=== PATIENT | male | born 1955 | race Caucasian/White ===

== ENCOUNTER 2018-08-23 11:19 | Inpatient (IN) | payer OTHER ==
[2018-08-23] MEDS: HYDROmorphONE 0.5 MG/0.5 ML SYG IV ×2 (11:44→13:36)
[2018-08-23] MEDS: CEFAZOLIN 1 GM/50 ML (PMX) 50 ML IVPB (12:00)
[2018-08-23 12:02] LABS: ADD MAN DIFF? NO
[2018-08-23 12:11] LABS: BASOPHIL # 0.1 10^3/ul (0.0-0.1); BASOPHILS % 0.5 % (0.0-2.0); EOSINOPHILS # 0.1 10^3/ul (0.0-0.5); EOSINOPHILS % 1.5 % (0.0-7.0); HEMATOCRIT 38.3 % (42.0-52.0); HEMOGLOBIN 13.2 g/dl (14.0-18.0); LYMPHOCYTES # 3.1 10^3/ul (0.8-2.9); LYMPHOCYTES % 32.6 % (15.0-51.0); MEAN CORPUSCULAR HGB CONC 34.5 g/dl (32.0-37.0); MEAN PLATELET VOLUME 10.1 fl (7.4-10.4); MONOCYTE # 0.8 10^3/ul (0.3-0.9); MONOCYTES % 8.1 % (0.0-11.0); NEUTROPHIL # 5.5 10^3/ul (1.6-7.5); PLATELET COUNT 294 10^3/UL (140-415)
[2018-08-23 12:11] LABS: WHITE BLOOD COUNT 9.6 10^3/ul (4.8-10.8)
[2018-08-23 12:24] LABS: ANION GAP 10 (5-13); BLOOD UREA NITROGEN 26 mg/dl (7-20); CALCIUM 9.3 mg/dl (8.4-10.2); CARBON DIOXIDE 24 mmol/L (21-31); CHLORIDE 103 mmol/L (97-110); CREATININE 1.04 mg/dl (0.61-1.24); Estimated GFR > 60 mL/min (>60); GLUCOSE 192 mg/dl (70-220); POTASSIUM 4.6 mmol/L (3.5-5.1); SODIUM 137 mmol/L (135-144)
[2018-08-23 12:28] LABS: INR 1.06; PROTIME 13.9 Sec (11.9-14.9); PT RATIO 1.1
[2018-08-23 12:29] LABS: PARTIAL THROMBOPLASTIN TIME 26.4 Sec (23.0-35.0)
[2018-08-23] MEDS ORDERED: PROPOFOL 20 ML (13:33)
[2018-08-23] MEDS ORDERED: DOCUSATE SODIUM 100 MG CAP PO (14:00)
[2018-08-23] MEDS ORDERED: NACL 0.9% 3 ML SYG IV (14:00)
[2018-08-23] MEDS ORDERED: ONDANSETRON 4 MG INJ IV (14:00)
[2018-08-23] MEDS: PROPOFOL 200 MG INJ IV ×2 (14:26→14:30)
[2018-08-23] MEDS ORDERED: VANCOMYCIN IV PER PHARMACY XX (14:30)
[2018-08-23] MEDS ORDERED: GLUCAGON 1 MG INJ IM (16:00)
[2018-08-23] MEDS ORDERED: GLUCOSE GEL 15 GRAM TUBE PO ×2 (16:00)
[2018-08-23] MEDS ORDERED: DEXTROSE 50% 50 ML SYRINGE IV ×2 (16:00)
[2018-08-23] MEDS ORDERED: GLUCOSE GEL 15 GRAM TUBE BUCCAL (16:00)
[2018-08-23 16:03] LABS: HEMOGLOBIN A1C 7.7 % (0-5.9)
[2018-08-23] MEDS: INSULIN ASPART [NOVOLOG] 3 ML PEN SC ×2 (17:50→20:14)
[2018-08-23] MEDS: VANCOMYCIN 1.75 GM in SOD CHLORIDE 0.9% 500 ML IVPB (17:51)
[2018-08-23] MEDS: morphine 2 MG INJ IV (19:27)
[2018-08-23] MEDS: FAMOTIDINE 20 MG TAB PO (20:11)
[2018-08-23] MEDS: INSULIN GLARGINE [LANTus] (100 UNITS/ML) SYG SC (20:15)
[2018-08-23] MEDS ORDERED: morphine SULFATE/PF (2 MG/2 ML) SYG IV (22:00)
[2018-08-24] MEDS: ACCU-CHEK XX ×4 (01:22→17:40)
[2018-08-24 05:10] LABS: ADD MAN DIFF? NO
[2018-08-24 05:20] LABS: WHITE BLOOD COUNT 10.4 10^3/ul (4.8-10.8)
[2018-08-24 05:20] LABS: BASOPHILS % 0.3 % (0.0-2.0); EOSINOPHILS # 0.1 10^3/ul (0.0-0.5); EOSINOPHILS % 0.9 % (0.0-7.0); HEMOGLOBIN 12.7 g/dl (14.0-18.0); LYMPHOCYTES % 19.4 % (15.0-51.0); MEAN CORPUSCULAR HEMOGLOBIN 30.2 pg (29.0-33.0); MEAN CORPUSCULAR HGB CONC 35.3 g/dl (32.0-37.0); MEAN CORPUSCULAR VOLUME 85.5 fl (82.0-101.0); MEAN PLATELET VOLUME 10.1 fl (7.4-10.4); MONOCYTE # 1.1 10^3/ul (0.3-0.9); MONOCYTES % 10.4 % (0.0-11.0); NEUTROPHIL # 7.2 10^3/ul (1.6-7.5); NEUTROPHILS % 68.7 % (39.0-77.0); PLATELET COUNT 246 10^3/UL (140-415); RED BLOOD COUNT 4.21 10^6/ul (4.70-6.10); RED CELL DISTRIBUTION WIDTH 12.3 % (11.5-14.5)
[2018-08-24] MEDS: VANCOMYCIN 1 GM 250 ML IVPB ×2 (05:32→17:39)
[2018-08-24 06:00] LABS: ALANINE AMINOTRANSFERASE 31 IU/L (13-69); ALBUMIN 4.2 g/dl (3.3-4.9); ALBUMIN/GLOBULIN RATIO 1.68; ALKALINE PHOSPHATASE 70 IU/L (42-121); ANION GAP 12 (5-13); ASPARTATE AMINO TRANSFERASE 41 IU/L (15-46); BILIRUBIN,INDIRECT 0.2 mg/dl (0-1.1); BILIRUBIN,TOTAL 0.2 mg/dl (0.2-1.3); BLOOD UREA NITROGEN 27 mg/dl (7-20); CALCIUM 9.5 mg/dl (8.4-10.2); CARBON DIOXIDE 25 mmol/L (21-31); CHLORIDE 103 mmol/L (97-110); Estimated GFR > 60 mL/min (>60); GLUCOSE 95 mg/dl (70-220); MAGNESIUM 1.9 mg/dl (1.7-2.5); PHOSPHORUS 3.9 mg/dl (2.5-4.9); POTASSIUM 4.3 mmol/L (3.5-5.1); SODIUM 140 mmol/L (135-144); TOTAL PROTEIN 6.7 g/dl (6.1-8.1)
[2018-08-24] MEDS: FAMOTIDINE 20 MG TAB PO ×2 (09:00→20:32)
[2018-08-24] MEDS: INSULIN ASPART [NOVOLOG] 3 ML PEN SC ×4 (09:00→20:37)
[2018-08-24] MEDS: ENOXAPARIN 40 MG/0.4 ML SYG SC (09:00)
[2018-08-24] MEDS ORDERED: BACITRACIN 50000 UNITS INJ (10:31)
[2018-08-24] MEDS ORDERED: HYDROmorphONE 1 MG/5 ML IV SYRINGE IV ×3 (11:00)
[2018-08-24] MEDS ORDERED: MEPERIDINE 25 MG INJ IV (11:00)
[2018-08-24] MEDS ORDERED: METOCLOPRAMIDE 10 MG INJ IV (11:00)
[2018-08-24] MEDS ORDERED: FENTAnyl 50 MCG/ML VIAL IV ×2 (11:00)
[2018-08-24] MEDS ORDERED: ONDANSETRON 4 MG INJ IV (11:00)
[2018-08-24] MEDS ORDERED: ALBUTEROL 0.083% (NEB) 2.5 MG/3 ML AMP HHN (11:00)
[2018-08-24] MEDS ORDERED: DIPHENHYDRAMINE 50 MG INJ IV (11:00)
[2018-08-24] MEDS ORDERED: POLYMYXIN B 500000 UNIT INJ (11:02)
[2018-08-24] MEDS ORDERED: FENTAnyl 50 MCG/ML VIAL (11:10)
[2018-08-24] MEDS ORDERED: CLINDAMYCIN 900 MG/D5W (PMX) 50 ML IVPB (11:37)
[2018-08-24] MEDS ORDERED: SUCCINYLCHOLINE CHLORIDE 100 MG/5 ML SYG IV (11:37)
[2018-08-24] MEDS ORDERED: PROPOFOL 20 ML (11:37)
[2018-08-24] MEDS ORDERED: ROCURONIUM 50 MG INJ (11:37)
[2018-08-24] MEDS ORDERED: SUGAMMADEX SODIUM 200 MG/2 ML VIAL IV (11:37)
[2018-08-24] MEDS ORDERED: LIDOCAINE 100 MG SYRINGE (11:37)
[2018-08-24] MEDS ORDERED: HYDROCODONE/APAP (5/325) TAB PO (12:30)
[2018-08-24] MEDS ORDERED: NACL 0.9% 3 ML SYG IV (12:30)
[2018-08-24] MEDS: morphine SULFATE/PF (2 MG/2 ML) SYG IV (13:21)
[2018-08-24] MEDS: D5W-0.45 NACL + KCL 20 MEQ 1,000 ML IV (13:22)
[2018-08-24] MEDS: LACTATED RINGER'S 500 ML IV ×2 (13:30→23:30)
[2018-08-24] MEDS: LISINOPRIL 20 MG TAB PO (14:07)
[2018-08-24] MEDS: metFORMIN 500 MG TAB PO (17:38)
[2018-08-24] MEDS: ACETAMINOPHEN 325 MG TAB PO (20:32)
[2018-08-24] MEDS: INSULIN GLARGINE [LANTus] (100 UNITS/ML) SYG SC (20:37)
[2018-08-25] MEDS: ACCU-CHEK XX ×5 (02:07→11:41)
[2018-08-25 05:22] LABS: ADD MAN DIFF? NO
[2018-08-25 05:24] LABS: WHITE BLOOD COUNT 8.3 10^3/ul (4.8-10.8)
[2018-08-25 05:24] LABS: BASOPHILS % 0.5 % (0.0-2.0); EOSINOPHILS # 0.1 10^3/ul (0.0-0.5); EOSINOPHILS % 1.6 % (0.0-7.0); HEMATOCRIT 37.4 % (42.0-52.0); LYMPHOCYTES % 24.3 % (15.0-51.0); MEAN CORPUSCULAR HEMOGLOBIN 29.7 pg (29.0-33.0); MEAN CORPUSCULAR HGB CONC 34.8 g/dl (32.0-37.0); MEAN CORPUSCULAR VOLUME 85.4 fl (82.0-101.0); MONOCYTE # 1.1 10^3/ul (0.3-0.9); MONOCYTES % 12.6 % (0.0-11.0); NEUTROPHIL # 5.1 10^3/ul (1.6-7.5); NEUTROPHILS % 60.8 % (39.0-77.0); PLATELET COUNT 236 10^3/UL (140-415); RED BLOOD COUNT 4.38 10^6/ul (4.70-6.10); RED CELL DISTRIBUTION WIDTH 12.1 % (11.5-14.5)
[2018-08-25 06:03] LABS: ALANINE AMINOTRANSFERASE 25 IU/L (13-69); ALBUMIN/GLOBULIN RATIO 1.29; ALKALINE PHOSPHATASE 68 IU/L (42-121); ANION GAP 8 (5-13); ASPARTATE AMINO TRANSFERASE 43 IU/L (15-46); BILIRUBIN,INDIRECT 0.4 mg/dl (0-1.1); BILIRUBIN,TOTAL 0.4 mg/dl (0.2-1.3); BLOOD UREA NITROGEN 18 mg/dl (7-20); CALCIUM 9.5 mg/dl (8.4-10.2); CARBON DIOXIDE 28 mmol/L (21-31); CHLORIDE 104 mmol/L (97-110); CREATININE 0.84 mg/dl (0.61-1.24); Estimated GFR > 60 mL/min (>60); GLUCOSE 107 mg/dl (70-220); POTASSIUM 4.4 mmol/L (3.5-5.1); SODIUM 140 mmol/L (135-144); TOTAL PROTEIN 7.1 g/dl (6.1-8.1)
[2018-08-25 06:09] LABS: VANCOMYCIN,TROUGH 13.8 ug/ml (10.0-20.0)
[2018-08-25] MEDS: VANCOMYCIN 1 GM 250 ML IVPB (06:54)
[2018-08-25] MEDS: INSULIN ASPART [NOVOLOG] 3 ML PEN SC ×2 (07:50→12:36)
[2018-08-25] MEDS: ASPIRIN 81 MG TAB PO (08:24)
[2018-08-25] MEDS: metFORMIN 500 MG TAB PO (08:24)
[2018-08-25] MEDS: ENOXAPARIN 40 MG/0.4 ML SYG SC (08:25)
[2018-08-25] MEDS: LISINOPRIL 20 MG TAB PO (08:25)
[2018-08-25] MEDS: ACETAMINOPHEN 325 MG TAB PO (08:25)
[2018-08-25] MEDS: FAMOTIDINE 20 MG TAB PO (08:28)
[2018-08-25] MEDS: LACTATED RINGER'S 500 ML IV (11:02)
== END 2018-08-25 15:48 | disposition home or self-care (01) | DRG 563 ==
LOC: MS1 14:54 → E/R 11:19 → MS1 13:47
PROC: 0PSKXZZ Reposition Right Ulna, External Approach (ICD-10-PCS; principal; 2018-08-24 11:06)
PROC: 0PSKXZZ Reposition Right Ulna, External Approach (ICD-10-PCS; 2018-08-24 11:06)
DX: S53.124A Posterior dislocation of right ulnohumeral joint, initial encounter (principal); I10 Essential (primary) hypertension; E11.9 Type 2 diabetes mellitus without complications; E78.5 Hyperlipidemia, unspecified; V19.9XXA Pedal cyclist (driver) (passenger) injured in unspecified traffic accident, initial encounter; K02.9 Dental caries, unspecified
CPT/HCPCS: 71045; 73070-52; 73080-RT; 80048; 80053; 80202; 82962; 83036; 83735; 84100; 85025; 85610; 85730; 86850; 86900; 86901; 94770; 96365; 96375; 96376; 99285-25